=== PATIENT | female | born 1975 | race Caucasian/White ===

== ENCOUNTER 2022-03-27 14:57 | Emergency (ER) | payer OTHER ==
[~2022-03-27 14:57] MED LIST: BACTROBAN OINT22 GM EXT; CIPRO500 MG/5 M PO; COLACE 100MG C100 MG PO; FLOXIN 0.3% OTIC5 ML EARRT; KEFLEX CAP 500500 MG PO; NAPROSYN500 MG PO; OMNICEF 300 MG300 MG PO; PERCOCET 5/325 T1 EA PO; PHENERGAN 25 MG25 M1 PO; ULTRAM50 MG PO
[2022-03-27 15:54] LABS: HEMOGLOBIN 12.5 gm/dl (12.3-15.3); RED BLOOD COUNT 3.65 M/UL (4.00-5.10); WHITE BLOOD COUNT 6.9 K/UL (4.5-11.0)
[2022-03-27 16:28] LABS: BUN/CREATININE RATIO 17 (0-10)
[2022-03-27] MEDS ORDERED: PROTONIX40 MG PO (17:55)
== END 2022-03-27 18:06 | disposition home or self-care (01) ==
LOC: ER1 14:57
PROVIDERS: Emergency Medicine
DX: R10.9 Unspecified abdominal pain (principal); Z90.49 Acquired absence of other specified parts of digestive tract; Z90.710 Acquired absence of both cervix and uterus; Z90.89 Acquired absence of other organs; Z88.8 Allergy status to other drugs, medicaments and biological substances
CPT/HCPCS: 80053; 81001; 82550; 82553; 83605; 83690; 84484; 84703; 85025; 87086; 96374; 96375; 99284; J2270; J2550; Q9967